=== PATIENT | male | born 1940 | race Caucasian/White ===

== ENCOUNTER 2017-08-01 07:30 | Inpatient (IN) | payer MEDICARE ==
[2017-07-25 12:49] LABS: CLARITY,URINE CLEAR (Clear); COLOR,URINE YELLOW (Yellow); GLUCOSE, URINE NEGATIVE (Neg); KETONES,URINE NEGATIVE (Neg); LEUKOCYTE ESTERASE ,URINE NEGATIVE (Neg); NITRITES, URINE NEGATIVE (Neg); OCCULT BLOOD,URINE NEGATIVE (Neg); PH,URINE 5.5 (4.8-8.0); PROTEIN,URINE NEGATIVE (Neg); UROBILINOGEN,URINE 0.2 E.U/dL (0.2-1.0)
[2017-07-25 12:55] LABS: UA COLLECTION TYPE CLN CATCH MIDSTREAM
[~2017-08-01] VITALS: Ht 180.3 cm; Wt 98.0 kg
[2017-08-01] VITALS (20 sets, daily range): BP systolic 96–130; BP diastolic 56–81
[~2017-08-01 07:30] MED LIST: ACET-2119 PO; ASPI81TA52 PO; COR3.125T PO; DOCUMENT DATE & TIME OF BETA-BLOCKER PO ONE; PANT-47 PO; ROPI0.5T2 PO; TRAM50TA2 PO; TRAZ-143 PO; [UNRECOGNIZED DRUG - CODE] PO; acetaminophen 325mg tablet PO ONE; cefazolin/dext.iso 2gm/50ml 50 ML IV ONE; celeCOXIB 100mg capsule PO ONE; famotidine 20mg tablet PO ONE; gabapentin 300mg capsule PO ONE; metoclopramide 5 mg/ml inj IV ONE; oxyCODONE SR 10mg (sust. release) tab PO ONE; ringers solution, lacted 1,000 ML IV SCH; tranexamic acid inj. 1,000 MG in normal saline 100ml IV soln 90 ML IV ONE; vancomycin inj 1,500 MG in normal saline 300ml IV soln IV ONE
[2017-08-01] MEDS ORDERED: ringers solution, lacted 1,000 ML IV SCH (08:51)
[2017-08-01] MEDS ORDERED: ondansetron/PF 4mg/2ml inj IV PRN ×2 (08:55→11:35)
[2017-08-01] MEDS ORDERED: meperidine/PF 25mg/ml syringe IV PRN ×3 (08:55)
[2017-08-01] MEDS ORDERED: proCHLORperazine 10 MG/2 ml inj IV PRN (08:55)
[2017-08-01] MEDS ORDERED: ketorolac trometh. 30mg/ml inj. ONE (09:02)
[2017-08-01] MEDS ORDERED: ROPIVAcaine 0.5% (5mg/ml) 30ml vial ONE ×2 (09:02→11:10)
[2017-08-01] MEDS ORDERED: vancomycin 1,000mg inj ONE (09:02)
[2017-08-01] MEDS ORDERED: epiNEPHrine 1 mg/ml inj ONE (09:02)
[2017-08-01] MEDS ORDERED: cloNIDine hcl/PF 100mcg/ml inj ONE (09:02)
[2017-08-01] MEDS ORDERED: cefazolin/dext.iso 2gm/50ml 50 ML IV ONE (09:20)
[2017-08-01] MEDS ORDERED: MIDAZolam 1mg/ml 10ml vial ONE (09:43)
[2017-08-01] MEDS ORDERED: fentaNYL/PF 50MCG/1 ML 2ML syringe ONE (09:44)
[2017-08-01] MEDS ORDERED: bisacodyl 10mg suppository rectal RC PRN (11:35)
[2017-08-01] MEDS ORDERED: oxyCODONE/APAP 10/325mg tablet PO PRN (11:35)
[2017-08-01] MEDS ORDERED: magnesium hydroxide 30ml (MOM) UD suspension PO PRN (11:35)
[2017-08-01] MEDS ORDERED: HYDROmorphone inj. 0.5 MG/0.5 ML DISP.SYRIN IV PRN ×2 (11:35)
[2017-08-01] MEDS ORDERED: diphenhydrAMINE 25mg capsule PO PRN ×2 (11:35)
[2017-08-01] MEDS ORDERED: acetaminophen 325mg tablet PO PRN (11:35)
[2017-08-01] MEDS: oxyCODONE/APAP 10/325mg tablet PO SCH ×3 (12:00→20:10)
[2017-08-01] MEDS: gabapentin 300mg capsule PO SCH ×2 (13:00→20:09)
[2017-08-01] MEDS: potassium cl 20mEq in 1/2 NS 1,000 ML IV SCH ×3 (15:17→22:27)
[2017-08-01] MEDS: cefazolin/dext.iso 2gm/50ml 50 ML IV SCH (17:04)
[2017-08-01] MEDS: sennosides 8.6mg tablet PO SCH (20:09)
[2017-08-01] MEDS: celeCOXIB 100mg capsule PO SCH (20:09)
[2017-08-01] MEDS: traZODone 50mg tablet PO SCH (20:09)
[2017-08-01] MEDS: ascorbic acid 500mg tablet PO SCH (20:10)
[2017-08-01] MEDS: carVEDilol 3.125mg tablet PO SCH (20:10)
[2017-08-01] MEDS: ROPINIRole 0.25mg tablet PO SCH (20:10)
[2017-08-01] MEDS: pantoprazole 40mg Tablet.DR PO SCH (20:10)
[2017-08-02] VITALS (7 sets, daily range): BP systolic 91–122; BP diastolic 52–75
[2017-08-02] MEDS: cefazolin/dext.iso 2gm/50ml 50 ML IV SCH (00:13)
[2017-08-02] MEDS: oxyCODONE/APAP 10/325mg tablet PO SCH ×4 (00:13→11:56)
[2017-08-02 07:04] LABS: BASOPHILS % (AUTO) 0.2 % (0-1); EOSINOPHILS # (AUTO) 0.2 X10'3 (0-0.9); HEMATOCRIT 32.8 % (42.0-52.0); HEMOGLOBIN 10.8 g/dl (14.0-17.9); LYMPHOCYTES # (AUTO) 1.1 X10'3 (1.1-4.8); LYMPHOCYTES % (AUTO) 15.3 % (21-51); MEAN CORPUSCULAR HEMOGLOBIN 27.7 PG (27.0-31.0); MEAN CORPUSCULAR HGB CONC 32.9 % (33.0-36.5); MEAN CORPUSCULAR VOLUME 84.1 FL (78-98); MEAN PLATELET VOLUME 7.7 FL (7.4-10.4); MONOCYTES # (AUTO) 0.7 X10'3 (0-0.9); MONOCYTES % (AUTO) 9.9 % (2-12); NEUTROPHILS % (AUTO) 71.6 % (42-75); PLATELET COUNT 165 X10'3 (140-440); RED CELL DISTRIBUTION WIDTH 14.1 % (11.5-14.5); WHITE BLOOD COUNT 6.9 X10'3 (4.5-11.0)
[2017-08-02 08:14] LABS: ANION GAP 7 (8-16); CHLORIDE 107 MMOL/L (99-107); POTASSIUM 4.3 MMOL/L (3.5-5.1); SODIUM 139 MMOL/L (135-145); TOTAL CARBON DIOXIDE 25.2 MMOL/L (24-32)
[2017-08-02] MEDS: aspirin 325mg tablet PO SCH (08:17)
[2017-08-02] MEDS: celeCOXIB 100mg capsule PO SCH ×2 (08:17→20:16)
[2017-08-02] MEDS: ROPINIRole 0.25mg tablet PO SCH ×2 (08:17→20:16)
[2017-08-02] MEDS: carVEDilol 3.125mg tablet PO SCH (08:17)
[2017-08-02] MEDS: gabapentin 300mg capsule PO SCH ×3 (08:18→20:16)
[2017-08-02] MEDS: pantoprazole 40mg Tablet.DR PO SCH ×2 (08:18→20:16)
[2017-08-02] MEDS: ascorbic acid 500mg tablet PO SCH ×2 (08:18→20:16)
[2017-08-02] MEDS: multivitamins, therapeutics tablet PO SCH (08:18)
[2017-08-02] MEDS: potassium cl 20mEq in 1/2 NS 1,000 ML IV SCH ×2 (08:55→19:35)
[2017-08-02] MEDS ORDERED: WALKERFR (09:10)
[2017-08-02] MEDS ORDERED: ASPI-1 PO (09:10)
[2017-08-02] MEDS ORDERED: PER10325T PO (09:13)
[2017-08-02] MEDS ORDERED: HYDROcodone/acetaminophen 10/325mg tab PO PRN (15:50)
[2017-08-02] MEDS: HYDROcodone/acetaminophen 10/325mg tab PO PRN ×2 (16:22→20:17)
[2017-08-02] MEDS: sennosides 8.6mg tablet PO SCH (20:16)
[2017-08-02] MEDS: traZODone 50mg tablet PO SCH (20:16)
[2017-08-03] MEDS: potassium cl 20mEq in 1/2 NS 1,000 ML IV SCH (03:35)
[2017-08-03] MEDS: HYDROcodone/acetaminophen 10/325mg tab PO PRN (05:04)
[2017-08-03 06:00] VITALS: BP 137/97
[2017-08-03 06:16] LABS: BASOPHILS % (AUTO) 0.2 % (0-1); EOSINOPHILS # (AUTO) 0.3 X10'3 (0-0.9); EOSINOPHILS % (AUTO) 3.5 % (0-6); HEMATOCRIT 33.8 % (42.0-52.0); LYMPHOCYTES # (AUTO) 0.8 X10'3 (1.1-4.8); LYMPHOCYTES % (AUTO) 11.3 % (21-51); MEAN CORPUSCULAR HEMOGLOBIN 27.9 PG (27.0-31.0); MEAN CORPUSCULAR HGB CONC 32.5 % (33.0-36.5); MEAN CORPUSCULAR VOLUME 85.9 FL (78-98); MEAN PLATELET VOLUME 8.6 FL (7.4-10.4); MONOCYTES # (AUTO) 1.1 X10'3 (0-0.9); MONOCYTES % (AUTO) 14.9 % (2-12); NEUTROPHILS # (AUTO) 5.1 X10'3 (1.8-7.7); NEUTROPHILS % (AUTO) 70.1 % (42-75); PLATELET COUNT 164 X10'3 (140-440); RED BLOOD COUNT 3.94 X10'6 (4.70-6.10); RED CELL DISTRIBUTION WIDTH 14.2 % (11.5-14.5); WHITE BLOOD COUNT 7.3 X10'3 (4.5-11.0)
[2017-08-03] MEDS: gabapentin 300mg capsule PO SCH ×2 (07:35→13:25)
[2017-08-03] MEDS: pantoprazole 40mg Tablet.DR PO SCH (07:35)
[2017-08-03] MEDS: multivitamins, therapeutics tablet PO SCH (07:36)
[2017-08-03] MEDS: ROPINIRole 0.25mg tablet PO SCH (07:36)
[2017-08-03] MEDS: celeCOXIB 100mg capsule PO SCH (07:36)
[2017-08-03] MEDS: aspirin 325mg tablet PO SCH (07:36)
[2017-08-03] MEDS: ascorbic acid 500mg tablet PO SCH (07:36)
[2017-08-03 10:00] VITALS: BP 108/69
== END 2017-08-03 14:40 | disposition home or self-care (01) | DRG 470 ==
LOC: PAS IN 08:28 → EDSTATUS 10:30 → ORTHO 4S 13:25
PROVIDERS: ADMIT Orthopaedic Surgery; ATTEND Orthopaedic Surgery Hand Surgery
PROC: 3E0T3BZ Introduction of Anesthetic Agent into Peripheral Nerves and Plexi, Percutaneous Approach (ICD-10-PCS; 2017-08-01)
PROC: 0SRC0J9 Replacement of Right Knee Joint with Synthetic Substitute, Cemented, Open Approach (ICD-10-PCS; principal; 2017-08-01 09:33)
DX: M17.11 Unilateral primary osteoarthritis, right knee (principal); D62 Acute posthemorrhagic anemia; I50.9 Heart failure, unspecified; G20 Parkinson's disease; E78.5 Hyperlipidemia, unspecified; G89.29 Other chronic pain; M54.9 Dorsalgia, unspecified; I25.10 Atherosclerotic heart disease of native coronary artery without angina pectoris; K21.9 Gastro-esophageal reflux disease without esophagitis; Z95.5 Presence of coronary angioplasty implant and graft; Z79.899 Other long term (current) drug therapy; Z79.01 Long term (current) use of anticoagulants; Z88.8 Allergy status to other drugs, medicaments and biological substances; Z87.891 Personal history of nicotine dependence
CPT/HCPCS: 36415; 71020; 73560; 80051; 81003; 85025; 86885; 86900; 86901; 87070; 97110; 97116; 97161; 97530; A6255; A6449; A6455; A7000; C1713; C1758; C1776; J0171; J0690; J0735; J1885; J2250; J2765; J2795; J3010; J3370; J7120

== ENCOUNTER 2021-05-06 20:16 | Emergency (ER) | payer OTHER, MEDICARE ==
[~2021-05-06] VITALS: Ht 180.3 cm; Wt 99.8 kg
[~2021-05-06 20:16] MED LIST changes: +ASPI-1 PO; -ASPI81TA52 PO; -DOCUMENT DATE & TIME OF BETA-BLOCKER PO ONE; +PER10325T PO; -ROPI0.5T2 PO; +ROPI0.5T4 PO; -TRAZ-143 PO; +TRAZ-251 PO; +WALKERFR; +[UNRECOGNIZED DRUG - CODE] PO; -[UNRECOGNIZED DRUG - CODE] PO; -acetaminophen 325mg tablet PO ONE; -cefazolin/dext.iso 2gm/50ml 50 ML IV ONE; -celeCOXIB 100mg capsule PO ONE; -famotidine 20mg tablet PO ONE; -gabapentin 300mg capsule PO ONE; -metoclopramide 5 mg/ml inj IV ONE; -oxyCODONE SR 10mg (sust. release) tab PO ONE; -ringers solution, lacted 1,000 ML IV SCH; -tranexamic acid inj. 1,000 MG in normal saline 100ml IV soln 90 ML IV ONE; -vancomycin inj 1,500 MG in normal saline 300ml IV soln IV ONE
[2021-05-06] MEDS ORDERED: bacitracin 15gm ointment TP ONE (20:35)
[2021-05-06] MEDS ORDERED: LIDOcaine 1% W/epiNEPHrine 1:200,000 10ml vial IJ ONE ×2 (21:30→21:35)
--- NOTE | 2021-05-06 22:02 | NUR ---
AT BEDSIDE SUTURING PT
[2021-05-06] MEDS ORDERED: CEPH-585 PO (23:15)
[2021-05-06] MEDS ORDERED: ONDA4TAB6 PO (23:25)
[2021-05-06] MEDS ORDERED: TETanus/Pertussis (Acell)/Diphther VAC/PF (Tdap-Adult) 0.5ml syringe IMVAC ONE (23:45)
[2021-05-06 23:59] VITALS: BP 115/67
== END 2021-05-06 23:57 | disposition home or self-care (01) ==
LOC: ER 20:17
DX: S01.21XA Laceration without foreign body of nose, initial encounter (principal); S01.511A Laceration without foreign body of lip, initial encounter; I25.10 Atherosclerotic heart disease of native coronary artery without angina pectoris; I50.9 Heart failure, unspecified; E78.00 Pure hypercholesterolemia, unspecified; K21.9 Gastro-esophageal reflux disease without esophagitis; M19.90 Unspecified osteoarthritis, unspecified site; G89.29 Other chronic pain; F17.200 Nicotine dependence, unspecified, uncomplicated; Z20.3 Contact with and (suspected) exposure to rabies; Z98.890 Other specified postprocedural states; Z87.442 Personal history of urinary calculi; Z88.8 Allergy status to other drugs, medicaments and biological substances; Z79.82 Long term (current) use of aspirin; Z79.2 Long term (current) use of antibiotics; Z79.899 Other long term (current) drug therapy; W18.30XA Fall on same level, unspecified, initial encounter; Y93.89 Activity, other specified; Y92.89 Other specified places as the place of occurrence of the external cause; Y99.8 Other external cause status
CPT/HCPCS: 12013; 40650; 70450; 70486; 72125; 90471; 90715; 93005; 99285